=== PATIENT | female | born 1960 | race Caucasian/White ===

== ENCOUNTER 2016-10-06 23:55 | Emergency (ER) | payer OTHER | END 2016-10-07 02:55 | disposition home or self-care (01) | LOC: ER1 23:55 | DX: J02.9 Acute pharyngitis, unspecified (principal); F17.200 Nicotine dependence, unspecified, uncomplicated; I10 Essential (primary) hypertension | CPT/HCPCS: 87081; 87880; 99283 ==

== ENCOUNTER 2021-10-13 15:53 | Emergency (ER) | payer OTHER ==
[~2021-10-13 15:53] MED LIST: CEFUROXIME500 MG PO; TESSALON PERLE100 MG PO; VENTOLIN HFA 66.7 GM INH
[2021-10-13 16:24] LABS: HEMOGLOBIN 14.3 gm/dl (12.3-15.3); RED BLOOD COUNT 4.7 M/UL (4.00-5.10); WHITE BLOOD COUNT 8.3 K/UL (4.5-11.0)
[2021-10-13 17:08] LABS: BUN/CREATININE RATIO 7 (0-10)
[2021-10-13] MEDS ORDERED: CYCLOBENZAPRINE5 MG PO (20:31)
[2021-10-13] MEDS ORDERED: NAPROSYN500 MG PO (20:31)
== END 2021-10-13 22:27 | disposition home or self-care (01) ==
LOC: ER1 15:53
PROVIDERS: Emergency Medicine
DX: R07.89 Other chest pain (principal); M54.2 Cervicalgia; M79.622 Pain in left upper arm; E78.5 Hyperlipidemia, unspecified; F41.9 Anxiety disorder, unspecified; Z91.041 Radiographic dye allergy status; I10 Essential (primary) hypertension; Z90.710 Acquired absence of both cervix and uterus; F17.210 Nicotine dependence, cigarettes, uncomplicated
CPT/HCPCS: 71045; 72125; 73030; 80053; 82550; 82553; 84484; 85025; 93005; 96374; 96375; 99285; J1100; J1885

== ENCOUNTER 2022-04-28 05:07 | Emergency (ER) | payer OTHER ==
[~2022-04-28 05:07] MED LIST changes: +CYCLOBENZAPRINE5 MG PO; +NAPROSYN500 MG PO
== END 2022-04-28 06:20 | disposition home or self-care (01) ==
LOC: ER1 05:07
DX: S63.511A Sprain of carpal joint of right wrist, initial encounter (principal); X58.XXXA Exposure to other specified factors, initial encounter
CPT/HCPCS: 73110; 99283